=== PATIENT | female | born 1955 | race African-American/Black ===

== ENCOUNTER 2016-12-14 12:47 | Emergency (ER) | payer MEDICAID, OTHER ==
[~2016-12-14] VITALS: Ht 165.1 cm; Wt 80.0 kg
[~2016-12-14 12:47] MED LIST: ASPI-1159 PO; ATOR20TA65 PO; CARV6.2548 PO; CLOP75TA15 PO; FURO40TA5 PO; INSU3INS6 SUBCUT; LOSA50TA20 PO; NIFE60TA64 PO; POTA10TA15 PO
[2016-12-14] MEDS ORDERED: SODIUM CHLORIDE 0.9% 1,000 ML IV ONE (12:55)
[2016-12-14] MEDS ORDERED: SODIUM CHLORIDE 0.9% 10ML VIAL ONE (13:10)
[2016-12-14] MEDS ORDERED: IOHEXOL-350 100 ML BOTTLE ONE (13:10)
[2016-12-14 13:35] LABS: BASOPHILS % 0.2 % (0.0-2.0); EOSINOPHILS % 0.2 % (0.0-5.0); HEMATOCRIT. 33.4 % (36.0-48.0); HEMOGLOBIN. 11.2 g/dL (12.0-16.0); LYMPHOCYTES % 21.4 % (20.0-50.0); MEAN CORPUSCULAR HEMOGLOBIN 29.3 pg (28.0-32.0); MEAN CORPUSCULAR VOLUME 87.7 fL (81.0-99.0); MEAN PLATELET VOLUME 7.9 fl (7.4-10.4); MONOCYTES % 0.8 % (2.0-8.0); NEUTROPHILS % 77.4 % (40.0-76.0); PLATELET 342 x1000/uL (130-400); RED BLOOD CELL COUNT 3.81 mill/uL (4.2-5.4); RED CELL DISTRIBUTION WIDTH 14.7 % (11.6-14.6)
[2016-12-14 13:46] LABS: CLARITY URINE TURBID (CLEAR); COLOR URINE YELLOW (YELLOW); GLUCOSE URINE 1+ (NEGATIVE); KETONES URINE NEGATIVE (NEGATIVE); LEUKOCYTE ESTERASE URINE 3+ (NEGATIVE); NITRITE URINE NEGATIVE (NEGATIVE); OCCULT BLOOD URINE 3+ (NEGATIVE); PH URINE 6.5 (4.5-8.0); PROTEIN URINE 3+ (NEGATIVE); SPECIFIC GRAVITY URINE 1.019 (1.005-1.030)
[2016-12-14 13:51] LABS: CARBON DIOXIDE 22 mEq/L (21-32); CHLORIDE 105 mEq/L (98-107); TROPONIN I 0.13 ng/mL (0.00-0.04)
[2016-12-14 13:52] LABS: D-DIMER 3.19 mg/L FEU (<0.50); INR 1.1; PARTIAL THROMBOPLASTIN TIME 28.4 sec (24.0-34.0); PROTHROMBIN TIME 11.3 sec
[2016-12-14] MEDS ORDERED: SODIUM CHLORIDE 0.9% 1000ML BAG (SEPSIS BOLUS) IV ONE (14:15)
[2016-12-14] MEDS ORDERED: CEFTRIAXONE 1 G PREMIX 50 ML IV ONE (14:15)
[2016-12-14 15:45] VITALS: BP 147/83
== END 2016-12-14 16:16 | disposition left against medical advice (07) ==
LOC: ER 13:10 → EDBEDREQ 14:26 → ENRESERV 14:50 → CANBEDREQ 16:15 → ER 16:16
DX: R06.02 Shortness of breath (principal); I50.9 Heart failure, unspecified; I51.7 Cardiomegaly; Z79.4 Long term (current) use of insulin; Z88.6 Allergy status to analgesic agent; Z79.82 Long term (current) use of aspirin
CPT/HCPCS: 36415; 71010; 71275; 80053; 81001; 82962; 83605; 83880; 84484; 85025; 85379; 85610; 85730; 87040; 87077; 87086; 87186; 93005; 96361; 96365; 99285; A4216; J0696; J7030; Q9967; Z7610